=== PATIENT | male | born 1990 | race African-American/Black ===

== ENCOUNTER 2017-08-12 12:35 | Emergency (ER) | payer OTHER ==
[~2017-08-12] VITALS: Ht 175.3 cm; Wt 74.8 kg
[2017-08-12 12:32] VITALS: BP 147/88
[~2017-08-12 12:35] MED LIST: NKM
[2017-08-12] MEDS ORDERED: Isovue-300 100ml vial INJ PRN (12:45)
[2017-08-12] MEDS ORDERED: DiphenhydrAMINE 50mg/ml Inj IVP ONE (12:45)
[2017-08-12] MEDS ORDERED: Metoclopramide 10mg/2ml Inj IVP ONE (12:45)
[2017-08-12 13:04] LABS: BASOPHILS % (AUTO) 1.5 % (0.0-2.0); EOSINOPHILS % (AUTO) 0.5 % (0.0-3.0); HEMATOCRIT 53.4 % (42.0-52.0); HEMOGLOBIN 17.8 G/DL (14.2-18.0); LYMPHOCYTES % (AUTO) 38.1 % (20.0-45.0); MEAN CORPUSCULAR VOLUME 94 FL (80-99); MONOCYTES % (AUTO) 8.8 % (1.0-10.0); NEUTROPHILS % (AUTO) 51.2 % (45.0-75.0); PLATELET COUNT 236 K/UL (150-450); RED BLOOD COUNT 5.67 M/UL (4.70-6.10); RED CELL DISTRIBUTION WIDTH 12.3 % (11.6-14.8); WHITE BLOOD COUNT 8.7 K/UL (4.8-10.8)
[2017-08-12 13:34] LABS: ANION GAP 11 mmol/L (5-15); BLOOD UREA NITROGEN 7 mg/dL (7-18); CALCIUM 9.2 MG/DL (8.5-10.1); CARBON DIOXIDE 25 MMOL/L (21-32); CHLORIDE 100 MMOL/L (98-107); CREATININE 1.1 MG/DL (0.55-1.30); POTASSIUM 4.4 MMOL/L (3.5-5.1); SODIUM 136 MMOL/L (136-145)
[2017-08-12 13:38] LABS: ALANINE AMINOTRANSFERASE 51 U/L (12-78); ALBUMIN 4.5 G/DL (3.4-5.0); ALBUMIN/GLOBULIN RATIO 1.1 (1.0-2.7); ALKALINE PHOSPHATASE 69 U/L (46-116); ASPARTATE AMINO TRANSFERASE 27 U/L (15-37); BILIRUBIN,TOTAL 0.4 MG/DL (0.2-1.0)
[2017-08-12 14:09] LABS: APPEARANCE,URINE CLEAR; BILIRUBIN, URINE NEGATIVE (NEGATIVE); GLUCOSE, URINE (UA) NEGATIVE (NEGATIVE); KETONES,URINE NEGATIVE (NEGATIVE); LEUKOCYTE ESTERASE ,URINE NEGATIVE (NEGATIVE); NITRITE,URINE NEGATIVE (NEGATIVE); PH,URINE 6 (4.5-8.0); PROTEIN,URINE NEGATIVE (NEGATIVE); UROBILINOGEN,URINE NORMAL MG/DL (0.0-1.0)
[2017-08-12 14:12] LABS: COLOR,URINE YELLOW
--- NOTE | 2017-08-12 14:21 | Emergency Room Report ---
History of Present Illness General Chief Complaint: Altered Level of Consciousness Source: Patient (Parker Sheppard MD) Present Illness HPI 27-year-old male presents ED for evaluation. Patient brought in by EMS. Per EMS patient was complaining of headache and dizziness and nausea and abdominal pain which started this morning. Pain is a 6 out of 10, sharp, nonradiating. Denies photophobia or blurry vision. Denies neck stiffness. Denies drug use. States that he drinks alcohol every single day. History of PTSD. No other aggravating or relieving factors. Denies any other associated symptoms (Parker Sheppard MD) Allergies: Coded Allergies: No Known Allergies (Unverified , 08/12/17) Patient History Past Medical History: psych hx Past Surgical History: none Pertinent Family History: none Social History: Reports: alcohol use; Denies: smoking, drug use Immunizations: UTD Reviewed Nursing Documentation: PMH: Agreed; PSxH: Agreed (Parker Sheppard MD) Nursing Documentation-PMH Past Medical History: No History, Except For History Of Psychiatric Problem: Yes - PTSD (Parker Sheppard MD) Review of Systems All Other Systems: negative except mentioned in HPI (Parker Sheppard MD) Physical Exam Vital Signs Date Time Temp Pulse Resp B/P (MAP) Pulse Ox O2 Delivery O2 Flow Rate FiO2 08/12/17 12:24 101 20 147/88 99 Room Air Sp02 EP Interpretation: reviewed, normal General Appearance: no apparent distress, alert, GCS 15, non-toxic Head: normocephalic, atraumatic Eyes: bilateral eye normal inspection, bilateral eye PERRL ENT: hearing grossly normal, normal pharynx, no angioedema, normal voice Neck: full range of motion, supple/symm/no masses Respiratory: chest non-tender, lungs clear, normal breath sounds, speaking full sentences Cardiovascular #1: regular rate, rhythm, no edema Cardiovascular #2: 2+ carotid (R), 2+ carotid (L), 2+ radial (R), 2+ radial (L) , 2+ dorsalis pedis (R), 2+ dorsalis pedis (L) Gastrointestinal: normal bowel sounds, soft, non-distended, no guarding, no rebound, tenderness Rectal: deferred Genitourinary: normal inspection, no CVA tenderness Musculoskeletal: back normal, gait/station normal, normal range of motion, non- tender Neurologic: alert, oriented x3, responsive, motor strength/tone normal, sensory intact, speech normal Psychiatric: judgement/insight normal, memory normal, anxious Reflexes: 3+ bicep (R), 3+ bicep (L), 3+ tricep (R), 3+ tricep (L), 3+ knee (R) , 3+ knee (L) Skin: normal color, no rash, warm/dry, well hydrated Lymphatic: no adenopathy (Parker Sheppard MD) Medical Decision Making Labs Test 08/12/17 12:40 08/12/17 13:22 White Blood Count 8.7 K/UL (4.8-10.8) Red Blood Count 5.67 M/UL (4.70-6.10) Hemoglobin 17.8 G/DL (14.2-18.0) Hematocrit 53.4 % (42.0-52.0) Mean Corpuscular Volume 94 FL (80-99) Mean Corpuscular Hemoglobin 31.4 PG (27.0-31.0) Mean Corpuscular Hemoglobin Concent 33.3 G/DL (32.0-36.0) Red Cell Distribution Width 12.3 % (11.6-14.8) Platelet Count 236 K/UL (150-450) Mean Platelet Volume 10.2 FL (6.5-10.1) Neutrophils (%) (Auto) 51.2 % (45.0-75.0) Lymphocytes (%) (Auto) 38.1 % (20.0-45.0) Monocytes (%) (Auto) 8.8 % (1.0-10.0) Eosinophils (%) (Auto) 0.5 % (0.0-3.0) Basophils (%) (Auto) 1.5 % (0.0-2.0) Sodium Level 136 MMOL/L (136-145) Potassium Level 4.4 MMOL/L (3.5-5.1) Chloride Level 100 MMOL/L (98-107) Carbon Dioxide Level 25 MMOL/L (21-32) Anion Gap 11 mmol/L (5-15) Blood Urea Nitrogen 7 mg/dL (7-18) Creatinine 1.1 MG/DL (0.55-1.30) Estimat Glomerular Filtration Rate > 60 mL/min (>60) Glucose Level 99 MG/DL (74-106) Calcium Level 9.2 MG/DL (8.5-10.1) Total Bilirubin 0.4 MG/DL (0.2-1.0) Aspartate Amino Transf (AST/SGOT) 27 U/L (15-37) Alanine Aminotransferase (ALT/SGPT) 51 U/L (12-78) Alkaline Phosphatase 69 U/L (46-116) Total Protein 8.5 G/DL (6.4-8.2) Albumin 4.5 G/DL (3.4-5.0) Globulin 4.0 g/dL Albumin/Globulin Ratio 1.1 (1.0-2.7) Lipase 127 U/L (73-393) Serum Alcohol 19 mg/dL Urine Color Yellow Urine Appearance Clear Urine pH 6 (4.5-8.0) Urine Specific [place] 1.010 (1.005-1.035) Urine Protein Negative (NEGATIVE) Urine Glucose (UA) Negative (NEGATIVE) Urine Ketones Negative (NEGATIVE) Urine Occult Blood Negative (NEGATIVE) Urine Nitrite Negative (NEGATIVE) Urine Bilirubin Negative (NEGATIVE) Urine Urobilinogen Normal MG/DL (0.0-1.0) Urine Leukocyte Esterase Negative (NEGATIVE) Urine Opiates Screen Negative (NEGATIVE) Urine Barbiturates Screen Negative (NEGATIVE) Phencyclidine (PCP) Screen Negative (NEGATIVE) Urine Amphetamines Screen Negative (NEGATIVE) Urine Benzodiazepines Screen Negative (NEGATIVE) Urine Cocaine Screen Positive (NEGATIVE) Urine Marijuana (THC) Screen Positive (NEGATIVE) (Parker Sheppard MD) ER Course Please see previous providers note for full history of present illness and remainder studies, patient was signed out pending CT CT shows possible hemangiomas otherwise unremarkable Patient informed of this and need for follow-, drug screen positive, will recommend follow-up as mentioned Patient DC home (EMRE MIRANDA M.D) CT/MRI/US Diagnostic Results CT/MRI/US Diagnostic Results : Imaging Test Ordered: ct abd pelvis Impression 2 lesions, one in the left hepatic lobe measuring 18 mm, one in the right hepatic lobe measuring 8 mm, as described. That in the left hepatic lobe demonstrates peripheral nodularity which suggests a benign hemangioma, but this cannot be stated conclusively on single phase imaging. That in the right hepatic lobe is nonspecific in appearance. Consider further evaluation with hemangioma protocol MRI or CT (EMRE MIRANDA M.D) Last Vital Signs Date Time Temp Pulse Resp B/P (MAP) Pulse Ox O2 Delivery O2 Flow Rate FiO2 08/12/17 12:32 100 20 147/88 99 Room Air (Parker Sheppard MD) Disposition: HOME, SELF-CARE Condition: Stable Parker Sheppard MD Aug 12, 2017 14:21 EMRE MIRANDA M.D Aug 12, 2017 15:11
[2017-08-12] MEDS: LORazepam Inj 2mg/ml 1ml IV ONE ×2 (14:27→14:36)
--- NOTE | 2017-08-12 14:54 | Diagnostic Imaging Report ---
Clinical Indication: Abdominal pain Technique: No oral contrast utilized, per emergency room physician request IV administration nonionic contrast. Venous phase spiral acquisition obtained through the abdomen and pelvis. Multiplanar reconstructions were generated. Total dose length product 647.45 mGycm. CTDIvol(s) 12.54 mGy. Dose reduction achieved using automated exposure control Comparison: none Findings: Lack of enteric contrast limits assessment of the GI tract. The appendix is normal. No evidence of diverticulosis or diverticulitis. No small bowel distention. No free or loculated intraperitoneal air or fluid. There is equivocal mild wall thickening of the proximal jejunum. The liver demonstrates 18 mm low-attenuation lesion within segment 2 which demonstrates suggestion of peripheral nodular enhancement. There is an 8mm lesion in segment 6 which demonstrates nonspecific attenuation the gallbladder, bile ducts, pancreas, spleen, adrenals, kidneys are unremarkable. No pelvic mass or adenopathy. The bladder is equivocally thick-walled, most likely an artifact of under distention. The included lung bases are clear. The bones are unremarkable. Impression: 2 lesions, one in the left hepatic lobe measuring 18 mm, one in the right hepatic lobe measuring 8 mm, as described. That in the left hepatic lobe demonstrates peripheral nodularity which suggests a benign hemangioma, but this cannot be stated conclusively on single phase imaging. That in the right hepatic lobe is nonspecific in appearance. Consider further evaluation with hemangioma protocol MRI or CT Limited assessment of the GI tract due to lack of enteric contrast administration Very questionable wall thickening of proximal jejunum, probably just upper limits of normal but could indicate enteritis. Correlate with clinical findings No definite acute process otherwise The CT scanner at [facility] [place] is accredited by the [employer] and the scans are performed using protocols designed to limit radiation exposure to as low as reasonably achievable to attain images of sufficient resolution adequate for diagnostic evaluation.
[2017-08-12] MEDS ORDERED: ZOFRAN4 M1 ORAL (15:14)
[2017-08-12 15:32] VITALS: BP 136/82
== END 2017-08-12 15:30 | disposition home or self-care (01) ==
LOC: EDBD 12:35 → EMR 15:05
DX: R51 Headache (principal); R42 Dizziness and giddiness; K76.9 Liver disease, unspecified; R11.0 Nausea; R10.9 Unspecified abdominal pain
CPT/HCPCS: 36415; 74177; 80053; 80307; 80329; 81003; 83690; 85025; 96361; 96374; 96375; 99284; J1200; J2765; Q9967; S0028; 96360